=== PATIENT | female | born 1990 | race African-American/Black ===

== ENCOUNTER 2016-12-02 14:12 | Emergency (ER) | payer OTHER ==
[~2016-12-02] VITALS: Ht 165.1 cm; Wt 108.9 kg
[~2016-12-02 14:12] MED LIST: ALBUTEROL INH IH; AMOXICILLIN 50500 M1 PO; ANUSOL-HC25 MG RECTAL; CIPROFLOXACIN500 M1 PO; CITRATE OF MAG296 ML PO; COLACE100 MG PO; HYDROCORTISONE30 G9 RECTAL; IBUPROFEN 600600 M1 PO; LORTAB 10 MG-3473 ML PO; NORCO 5-325 TA1 EACH PO; PEPCID20 MG IV; PHENERGAN 25 MG25 M1 PO; PREDNISONE50 MG PO; PROAIR HFA8.5 GM IH; PROVENTIL IH; REGLAN 10 MG TA10 MG IV; TRAMADOL 50 MG50 MG PO; TRINATE TABLET1 TAB PO; ZPAK PO
[2016-12-02 15:35] LABS: URINE BILIRUBIN NEGATIVE (Negative); URINE BLOOD 1+ (Negative); URINE COLOR YELLOW; URINE GLUCOSE-RANDOM* NEGATIVE (Negative); URINE KETONES NEGATIVE (Negative); URINE NITRITE NEGATIVE (Negative); URINE PROTEIN (DIPSTICK) NEGATIVE (Negative); URINE SPECIFIC GRAVITY 1.015 (1.003-1.035); URINE UROBILINOGEN 0.2 E.U./dl (0.2-1.0)
[2016-12-02 15:39] LABS: ABSOLUTE NEUTROPHILS 3.8 thou/uL (1.4-8.2); BASOPHILS 0.4 % (0.0-2.0); EOSINOPHILS 1.2 % (0.0-3.0); HEMATOCRIT 35.5 % (37.0-47.0); LYMPHOCYTES 40.1 % (24.0-44.0); MANUAL DIFF NO; MCH 28.5 pg (26.0-34.0); MCHC 33.8 g/dL (28.0-37.0); MCV 84.2 fL (80.0-100.0); MONOCYTES 5.2 % (1.0-8.0); PLATELET COUNT 217 thou/uL (150-400); POLYS 53.1 % (36.0-66.0); RBC 4.21 mil/uL (4.20-5.00); RDW 15.4 % (10.5-14.5); WBC 7.1 thou/uL (4.0-11.0)
[2016-12-02 15:40] LABS: CASTS None Seen /LPF (None Seen); CRYSTALS None Seen /LPF (None Seen); SQUAMOUS 4-10 Moderate /LPF (0-3); URINE RBC 3-10 Few /HPF (0-2)
[2016-12-02 15:41] LABS: BACTERIA 1-9 Few /HPF (None Seen); URINE WBC None Seen /HPF (0-5)
[2016-12-02 15:48] LABS: CALCIUM 8.6 mg/dL (8.5-10.1); CREATININE 0.8 mg/dL (0.6-1.0)
[2016-12-02 15:52] LABS: ALBUMIN 3.6 g/dL (3.4-5.0); TOTAL BILIRUBIN 0.3 mg/dL (<0.1-1.0); TOTAL PROTEIN 7.8 g/dL (6.4-8.2)
[2016-12-02] MEDS ORDERED: NORCO 5-325 TA1 EACH PO (16:07)
== END 2016-12-02 16:50 | disposition home or self-care (01) ==
LOC: ER 14:12
PROVIDERS: Physician Assistant
DX: N83.202 Unspecified ovarian cyst, left side (principal); J45.909 Unspecified asthma, uncomplicated; Z90.49 Acquired absence of other specified parts of digestive tract; Z88.6 Allergy status to analgesic agent; Z91.010 Allergy to peanuts

== ENCOUNTER 2016-12-31 11:00 | Emergency (ER) | payer OTHER ==
[~2016-12-31] VITALS: Ht 167.6 cm; Wt 108.9 kg
[2016-12-31] MEDS ORDERED: IBUPROFEN 800800 M1 PO (13:05)
== END 2016-12-31 13:32 | disposition home or self-care (01) ==
LOC: ER 11:00
DX: S63.692A Other sprain of right middle finger, initial encounter (principal); J45.909 Unspecified asthma, uncomplicated; F10.99 Alcohol use, unspecified with unspecified alcohol-induced disorder; Z90.49 Acquired absence of other specified parts of digestive tract; Z98.890 Other specified postprocedural states; Z88.6 Allergy status to analgesic agent; Z91.010 Allergy to peanuts; W23.0XXA Caught, crushed, jammed, or pinched between moving objects, initial encounter; Y93.89 Activity, other specified; Y92.89 Other specified places as the place of occurrence of the external cause; Y99.8 Other external cause status

== ENCOUNTER 2018-05-26 09:42 | Emergency (ER) | payer OTHER ==
[~2018-05-26] VITALS: Ht 172.7 cm; Wt 109.8 kg
[~2018-05-26 09:42] MED LIST changes: +IBUPROFEN 800800 M1 PO; +PENICILLIN V P500 MG PO
[2018-05-26] MEDS ORDERED: NOHOMEMEDICATIONS (09:59)
[2018-05-26 10:06] LABS: URINE BILIRUBIN NEGATIVE (Negative); URINE BLOOD 3+ (Negative); URINE CLARITY CLEAR; URINE COLOR YELLOW; URINE GLUCOSE-RANDOM* NEGATIVE (Negative); URINE KETONES NEGATIVE (Negative); URINE LEUKOCYTES NEGATIVE (Negative); URINE NITRITE NEGATIVE (Negative); URINE PROTEIN (DIPSTICK) NEGATIVE (Negative); URINE SPECIFIC GRAVITY >= 1.030 (1.005-1.035); URINE UROBILINOGEN 0.2 E.U./dl (0.2-1.0)
[2018-05-26 10:17] LABS: CASTS None Seen /LPF (None Seen); CRYSTALS None Seen /LPF (None Seen); SQUAMOUS >10 Many /LPF (0-3); URINE WBC 0-5 Rare /HPF (0-5)
[2018-05-26 10:18] LABS: BACTERIA 1-9 Few /HPF (None Seen)
[2018-05-26 11:08] LABS: ABSOLUTE NEUTROPHILS 2.2 thou/uL (1.4-8.2); BASOPHILS 0.6 % (0.0-2.0); EOSINOPHILS 0.8 % (0.0-3.0); HEMATOCRIT 39.1 % (37.0-47.0); HEMOGLOBIN 13.3 gm/dL (12.0-15.0); LYMPHOCYTES 49.6 % (24.0-44.0); MCH 29.2 pg (26.0-34.0); MCHC 33.9 g/dL (28.0-37.0); MCV 86.1 fL (80.0-100.0); MONOCYTES 5.8 % (1.0-8.0); PLATELET COUNT 232 thou/uL (150-400); POLYS 43.2 % (36.0-66.0); RBC 4.55 mil/uL (4.20-5.00); WBC 5.2 thou/uL (4.0-11.0)
[2018-05-26 11:22] LABS: CALCIUM 9.4 mg/dL (8.5-10.1); CREATININE 0.9 mg/dL (0.6-1.0); POTASSIUM 3.8 mmol/L (3.5-5.1)
[2018-05-26 12:03] VITALS: BP 119/75
== END 2018-05-26 12:10 | disposition home or self-care (01) ==
LOC: ER 09:42
PROVIDERS: Student in an Organized Health Care Education/Training Program
DX: R10.32 Left lower quadrant pain (principal); Y04.2XXA Assault by strike against or bumped into by another person, initial encounter; Y93.89 Activity, other specified; Y92.89 Other specified places as the place of occurrence of the external cause; Y99.8 Other external cause status; J45.909 Unspecified asthma, uncomplicated; Z90.49 Acquired absence of other specified parts of digestive tract; Z88.6 Allergy status to analgesic agent

== ENCOUNTER 2018-07-28 07:57 | Emergency (ER) | payer OTHER ==
[~2018-07-28] VITALS: Ht 172.7 cm; Wt 112.5 kg
[~2018-07-28 07:57] MED LIST changes: +NOHOMEMEDICATIONS
[2018-07-28 08:39] LABS: ABSOLUTE NEUTROPHILS 8.4 thou/uL (1.4-8.2); BASOPHILS 0.5 % (0.0-2.0); EOSINOPHILS 0.5 % (0.0-3.0); HEMATOCRIT 36.5 % (37.0-47.0); HEMOGLOBIN 12.5 gm/dL (12.0-15.0); LYMPHOCYTES 11.6 % (24.0-44.0); MCH 29.3 pg (26.0-34.0); MCHC 34.1 g/dL (28.0-37.0); MONOCYTES 4.7 % (1.0-8.0); PLATELET COUNT 189 thou/uL (150-400); POLYS 82.7 % (36.0-66.0); RBC 4.25 mil/uL (4.20-5.00); RDW 13.9 % (10.5-14.5); WBC 10.1 thou/uL (4.0-11.0)
[2018-07-28 08:41] LABS: CALCIUM 9.1 mg/dL (8.5-10.1); CREATININE 0.8 mg/dL (0.6-1.0); POTASSIUM 4.2 mmol/L (3.5-5.1)
[2018-07-28 08:47] LABS: ALBUMIN 3.3 g/dL (3.4-5.0); TOTAL BILIRUBIN 0.5 mg/dL (<0.1-1.0); TOTAL PROTEIN 7.9 g/dL (6.4-8.2)
[2018-07-28 08:51] LABS: URINE COLOR YELLOW
[2018-07-28 08:52] LABS: URINE BILIRUBIN NEGATIVE (Negative); URINE BLOOD 3+ (Negative); URINE CLARITY SLIGHTLY CLOUDY; URINE GLUCOSE-RANDOM* NEGATIVE (Negative); URINE KETONES NEGATIVE (Negative); URINE LEUKOCYTES-REFLEX 3+ (Negative); URINE NITRITE-REFLEX NEGATIVE (Negative); URINE PROTEIN (DIPSTICK) TRACE (Negative); URINE SPECIFIC GRAVITY 1.025 (1.005-1.035); URINE UROBILINOGEN 0.2 E.U./dl (0.2-1.0)
[2018-07-28 09:01] LABS: CASTS None Seen /LPF (None Seen); CRYSTALS None Seen /LPF (None Seen); SQUAMOUS >10 Many /LPF (0-3); URINE WBC-REFLEX >25 Many /HPF (0-5)
[2018-07-28 09:05] LABS: BACTERIA-REFLEX >30 Many /HPF (None Seen)
[2018-07-28] MEDS ORDERED: ONDANSETRON HCL4 M2 PO (11:27)
[2018-07-28] MEDS ORDERED: KEFLEX500 M1 PO (11:27)
[2018-07-28 11:39] VITALS: BP 131/71
== END 2018-07-28 11:40 | disposition home or self-care (01) ==
LOC: ER 07:57
PROVIDERS: Emergency Medicine
DX: N39.0 Urinary tract infection, site not specified (principal); J45.909 Unspecified asthma, uncomplicated; Z87.01 Personal history of pneumonia (recurrent); Z90.49 Acquired absence of other specified parts of digestive tract; Z98.890 Other specified postprocedural states; Z91.010 Allergy to peanuts; Z88.6 Allergy status to analgesic agent

== ENCOUNTER 2018-08-20 13:30 | Emergency (ER) | payer OTHER ==
[~2018-08-20] VITALS: Ht 172.7 cm; Wt 110.2 kg
[~2018-08-20 13:30] MED LIST changes: +KEFLEX500 M1 PO; +ONDANSETRON HCL4 M2 PO
[2018-08-20 13:52] LABS: URINE BILIRUBIN NEGATIVE (Negative); URINE BLOOD 3+ (Negative); URINE CLARITY TURBID; URINE COLOR RED; URINE GLUCOSE-RANDOM* NEGATIVE (Negative); URINE KETONES NEGATIVE (Negative); URINE LEUKOCYTES-REFLEX TRACE (Negative); URINE NITRITE-REFLEX POSITIVE (Negative); URINE PROTEIN (DIPSTICK) 2+ (Negative); URINE UROBILINOGEN 0.2 E.U./dl (0.2-1.0)
[2018-08-20 13:57] LABS: BACTERIA-REFLEX 1-9 Few /HPF (None Seen); CASTS None Seen /LPF (None Seen); CRYSTALS None Seen /LPF (None Seen); SQUAMOUS 0-3 Few /LPF (0-3); URINE RBC >20 Many /HPF (0-2); URINE WBC-REFLEX 0-5 Rare /HPF (0-5)
[2018-08-20 14:23] LABS: ABSOLUTE NEUTROPHILS 2.9 thou/uL (1.4-8.2); BASOPHILS 0.5 % (0.0-2.0); EOSINOPHILS 1.1 % (0.0-3.0); HEMATOCRIT 35.4 % (37.0-47.0); HEMOGLOBIN 11.9 gm/dL (12.0-15.0); LYMPHOCYTES 37.5 % (24.0-44.0); MCH 28.8 pg (26.0-34.0); MCHC 33.6 g/dL (28.0-37.0); MCV 85.6 fL (80.0-100.0); MONOCYTES 4.3 % (1.0-8.0); PLATELET COUNT 212 thou/uL (150-400); POLYS 56.6 % (36.0-66.0); RBC 4.14 mil/uL (4.20-5.00); RDW 14.1 % (10.5-14.5); WBC 5.1 thou/uL (4.0-11.0)
[2018-08-20] MEDS ORDERED: KEFLEX500 M1 PO (15:34)
[2018-08-20 16:15] VITALS: BP 129/66
== END 2018-08-20 16:16 | disposition home or self-care (01) ==
LOC: ER 13:30
PROVIDERS: Nurse Practitioner
DX: N39.0 Urinary tract infection, site not specified (principal); J45.909 Unspecified asthma, uncomplicated; Z88.6 Allergy status to analgesic agent; Z91.010 Allergy to peanuts; Z90.49 Acquired absence of other specified parts of digestive tract; Z98.890 Other specified postprocedural states

== ENCOUNTER 2018-08-26 12:02 | Emergency (ER) | payer OTHER ==
[~2018-08-26] VITALS: Ht 172.7 cm; Wt 110.2 kg
[2018-08-26] MEDS ORDERED: TIZANIDINE HCL4 MG PO (13:26)
[2018-08-26 13:40] VITALS: BP 138/87
== END 2018-08-26 13:41 | disposition home or self-care (01) ==
LOC: ER 12:02
DX: S00.83XA Contusion of other part of head, initial encounter (principal); S46.811A Strain of other muscles, fascia and tendons at shoulder and upper arm level, right arm, initial encounter; J45.909 Unspecified asthma, uncomplicated; Z87.01 Personal history of pneumonia (recurrent); Z90.49 Acquired absence of other specified parts of digestive tract; Z98.890 Other specified postprocedural states; Z88.6 Allergy status to analgesic agent; Z91.010 Allergy to peanuts; V89.2XXA Person injured in unspecified motor-vehicle accident, traffic, initial encounter; Y93.89 Activity, other specified; Y92.89 Other specified places as the place of occurrence of the external cause; Y99.8 Other external cause status

== ENCOUNTER 2018-09-15 12:41 | Emergency (ER) | payer OTHER ==
[~2018-09-15] VITALS: Ht 172.7 cm; Wt 109.8 kg
[~2018-09-15 12:41] MED LIST changes: +TIZANIDINE HCL4 MG PO
[2018-09-15 12:59] LABS: URINE BILIRUBIN NEGATIVE (Negative); URINE BLOOD 3+ (Negative); URINE CLARITY CLEAR; URINE COLOR YELLOW; URINE GLUCOSE-RANDOM* NEGATIVE (Negative); URINE KETONES NEGATIVE (Negative); URINE NITRITE-REFLEX NEGATIVE (Negative); URINE PROTEIN (DIPSTICK) NEGATIVE (Negative); URINE UROBILINOGEN 0.2 E.U./dl (0.2-1.0)
[2018-09-15 13:02] LABS: URINE LEUKOCYTES-REFLEX 1+ (Negative)
[2018-09-15 13:08] LABS: BACTERIA-REFLEX 1-9 Few /HPF (None Seen); CASTS None Seen /LPF (None Seen); SQUAMOUS 4-10 Moderate /LPF (0-3); URINE RBC 3-10 Few /HPF (0-2)
[2018-09-15 13:09] LABS: CRYSTALS None Seen /LPF (None Seen); URINE WBC-REFLEX 0-5 Rare /HPF (0-5)
[2018-09-15 13:26] LABS: ABSOLUTE NEUTROPHILS 3.4 thou/uL (1.4-8.2); BASOPHILS 0.4 % (0.0-2.0); EOSINOPHILS 0.9 % (0.0-3.0); HEMATOCRIT 36.8 % (37.0-47.0); HEMOGLOBIN 12.2 gm/dL (12.0-15.0); LYMPHOCYTES 35.2 % (24.0-44.0); MCH 28.2 pg (26.0-34.0); MCV 85.5 fL (80.0-100.0); MONOCYTES 5.4 % (1.0-8.0); PLATELET COUNT 217 thou/uL (150-400); POLYS 58.1 % (36.0-66.0); RDW 14.1 % (10.5-14.5); WBC 5.8 thou/uL (4.0-11.0)
[2018-09-15 13:35] LABS: CALCIUM 9.3 mg/dL (8.5-10.1); POTASSIUM 3.6 mmol/L (3.5-5.1)
[2018-09-15] MEDS ORDERED: FLAGYL500 M1 PO (14:09)
[2018-09-15 14:35] VITALS: BP 122/64
== END 2018-09-15 14:36 | disposition home or self-care (01) ==
LOC: ER 12:41
PROVIDERS: Nurse Practitioner Family
DX: A59.01 Trichomonal vulvovaginitis (principal); N93.8 Other specified abnormal uterine and vaginal bleeding; J45.909 Unspecified asthma, uncomplicated; Z90.49 Acquired absence of other specified parts of digestive tract; Z98.890 Other specified postprocedural states; Z87.01 Personal history of pneumonia (recurrent); Z88.6 Allergy status to analgesic agent; Z91.010 Allergy to peanuts

== ENCOUNTER 2019-03-04 08:00 | Emergency (ER) | payer OTHER ==
[~2019-03-04] VITALS: Ht 172.7 cm; Wt 123.4 kg
[~2019-03-04 08:00] MED LIST changes: +FLAGYL500 M1 PO
[2019-03-04 08:23] LABS: ABSOLUTE NEUTROPHILS 2.7 thou/uL (1.4-8.2); BASOPHILS 0.9 % (0.0-2.0); EOSINOPHILS 0.4 % (0.0-3.0); HEMATOCRIT 38.4 % (37.0-47.0); HEMOGLOBIN 12.7 gm/dL (12.0-15.0); MCH 27.8 pg (26.0-34.0); MCHC 33.1 g/dL (28.0-37.0); MONOCYTES 6.2 % (1.0-8.0); PLATELET COUNT 228 thou/uL (150-400); POLYS 56.5 % (36.0-66.0); RBC 4.58 mil/uL (4.20-5.00); RDW 15.2 % (10.5-14.5); WBC 4.8 thou/uL (4.0-11.0)
[2019-03-04 08:32] LABS: ANION GAP 8 mmol/L (7-16); BUN 11 mg/dL (7-18); CALCIUM 9.6 mg/dL (8.5-10.1); CHLORIDE 103 mmol/L (98-107); CO2 27 mmol/L (21-32); CREATININE 0.9 mg/dL (0.6-1.0); GLUCOSE 116 mg/dL (74-106); POTASSIUM 3.4 mmol/L (3.5-5.1); SODIUM 138 mmol/L (136-145)
[2019-03-04 08:43] LABS: ALBUMIN 3.6 g/dL (3.4-5.0); LIPASE 122 U/L (73-393); SGOT 12 U/L (15-37); SGPT 18 U/L (30-65); TOTAL BILIRUBIN 0.3 mg/dL (<0.1-1.0); TROPONIN-I <0.06 ng/mL (<0.06)
[2019-03-04] MEDS ORDERED: ZOFRAN ODT4 MG PO (11:58)
[2019-03-04 11:59] VITALS: BP 126/57
--- NOTE | 2019-03-05 18:04 | EKG ---
[address] [place] [address] ELECTROCARDIOGRAM REPORT Name: LOYAJALEN Be Room #: DEP [facility]#: [id number] Admission: 03/04/19 Attend Phys: Discharge: 03/04/19 Date of : [birth year] Report #: [id number] THIS REPORT FOR: //name// [facility] ED Test Date: 2019-03-04 Test Time: 08:20:32 Pat Name: JALEN LOYA Department: Room: Gender: F [employer]: : 1990 Requested By: Rakesh Britt Order Number: [id number] MD: Reuben Helton Measurements Intervals [place] Rate: 67 P: 58 ID: [id number] QRS: 62 QRSD: 89 T: 5 QT: 356 QTc: 376 Interpretive Statements Sinus rhythm Normal tracing Compared to ECG 10/04/2015 22:02:54 Sinus arrhythmia no longer present Electronically Signed On 03-05-2019 18:04:29 CDT by Reuben Helton [email or web address] <ELECTRONICALLY SIGNED> By: Reuben Helton MD, [facility] 03/05/19 1804 08 9 Reuben Helton MD, FACC /EPI
== END 2019-03-04 11:59 | disposition home or self-care (01) ==
LOC: ER 08:00
PROVIDERS: Emergency Medicine
DX: R11.2 Nausea with vomiting, unspecified (principal); R10.84 Generalized abdominal pain; E66.01 Morbid (severe) obesity due to excess calories; J45.909 Unspecified asthma, uncomplicated; Z88.6 Allergy status to analgesic agent; Z91.010 Allergy to peanuts; Z90.49 Acquired absence of other specified parts of digestive tract

== ENCOUNTER 2021-02-26 21:49 | Emergency (ER) | payer OTHER ==
[~2021-02-26] VITALS: Ht 172.7 cm; Wt 123.4 kg
[~2021-02-26 21:49] MED LIST changes: +ZOFRAN ODT4 MG PO
[2021-02-26 21:55] VITALS: BP 127/82
== END 2021-02-27 00:45 | disposition home or self-care (01) ==
LOC: ER 21:49
DX: U07.1 COVID-19 (principal); J45.909 Unspecified asthma, uncomplicated; Z98.890 Other specified postprocedural states; Z90.49 Acquired absence of other specified parts of digestive tract; Z79.899 Other long term (current) drug therapy; Z91.010 Allergy to peanuts; Z88.6 Allergy status to analgesic agent